=== PATIENT | male | born 1965 | race Caucasian/White ===

== ENCOUNTER 2017-08-29 12:35 | Emergency (ER) | payer OTHER ==
[2017-08-29] MEDS: HYDROCODONE/APAP (10/325) TAB PO (13:39)
== END 2017-08-29 14:14 | disposition home or self-care (01) ==
LOC: FTE 12:35
DX: J32.9 Chronic sinusitis, unspecified (principal); H66.92 Otitis media, unspecified, left ear; H60.92 Unspecified otitis externa, left ear; J45.909 Unspecified asthma, uncomplicated
CPT/HCPCS: 99284; Z7502